=== PATIENT | male | born 1945 | race Hispanic/Latino ===

== ENCOUNTER 2022-02-24 09:45 | Day surgery (SDC) | payer OTHER ==
[2022-02-24] MEDS ORDERED: Acetaminophen 500 MG TAB ONE (11:16)
[2022-02-24] MEDS ORDERED: diphenhydrAMINE 25 MG CAP ONE (11:16)
[2022-02-24 13:52] VITALS: BP 172/77; TEMP 98.1
== END 2022-02-24 13:53 | disposition home or self-care (01) ==
LOC: ONC/OP 09:45
PROVIDERS: ATTEND Internal Medicine Hematology & Oncology
PROC: 30233N1 Transfusion of Nonautologous Red Blood Cells into Peripheral Vein, Percutaneous Approach (ICD-10-PCS; principal; 2022-02-24)
DX: D64.9 Anemia, unspecified (principal); D69.6 Thrombocytopenia, unspecified
CPT/HCPCS: 36430; 86850; 86900; 86901; P9016

== ENCOUNTER 2022-03-11 09:31 | Day surgery (SDC) | payer OTHER ==
[2022-03-11] MEDS ORDERED: diphenhydrAMINE 25 MG CAP ONE (10:31)
[2022-03-11] MEDS ORDERED: Acetaminophen 500 MG TAB ONE (10:31)
[2022-03-11 13:06] VITALS: BP 173/76; TEMP 98
== END 2022-03-11 13:06 | disposition home or self-care (01) ==
LOC: ONC/OP 09:31
PROVIDERS: ATTEND Internal Medicine Hematology & Oncology
PROC: 30233N1 Transfusion of Nonautologous Red Blood Cells into Peripheral Vein, Percutaneous Approach (ICD-10-PCS; principal; 2022-03-11)
DX: D64.9 Anemia, unspecified (principal); D69.6 Thrombocytopenia, unspecified
CPT/HCPCS: 36430; 86850; 86900; 86901; P9016

== ENCOUNTER 2022-03-25 11:51 | Outpatient (CLI) | payer OTHER | END 2022-03-25 11:52 | disposition home or self-care (01) | LOC: BICRAD 11:51 | PROVIDERS: ATTEND Internal Medicine Hematology & Oncology | DX: R05.9 Cough, unspecified (principal); C91.Z0 Other lymphoid leukemia not having achieved remission; J90 Pleural effusion, not elsewhere classified; J98.11 Atelectasis | CPT/HCPCS: 71046 ==

== ENCOUNTER 2022-06-02 08:29 | Day surgery (SDC) | payer OTHER ==
[2022-06-02] MEDS ORDERED: Acetaminophen 500 MG TAB ONE (09:29)
[2022-06-02] MEDS ORDERED: diphenhydrAMINE 25 MG CAP ONE (09:29)
[2022-06-02 15:24] VITALS: BP 142/65; TEMP 97.8
== END 2022-06-02 15:19 | disposition home or self-care (01) ==
LOC: ONC/OP 08:29
PROVIDERS: ATTEND Internal Medicine Hematology & Oncology
PROC: 30233N1 Transfusion of Nonautologous Red Blood Cells into Peripheral Vein, Percutaneous Approach (ICD-10-PCS; principal; 2022-06-02)
DX: D64.9 Anemia, unspecified (principal); D69.6 Thrombocytopenia, unspecified
CPT/HCPCS: 36430; 86850; 86900; 86901; P9016

== ENCOUNTER 2022-09-16 09:40 | Inpatient (IN) | payer OTHER ==
[2022-09-16 10:41] LABS: Hemoglobin 8.1 g/dL (14.0-18.0); Mean Corpuscular HGB CONC 31.8 g/dL (32.0-36.0); Mean Corpuscular Hemoglobin 37.6 pg (27.0-31.0); Mean Platelet Volume 7.3 fL (7.4-10.4); Platelet Count 308 10x3/uL (130-400); RBC Distribution Width 17.7 % (11.5-14.5); Red Blood Cell (RBC) Count 2.15 mill/uL (4.70-6.10); White Blood Cell (WBC) Count 4.7 10x3/uL (4.8-10.8)
[2022-09-16 11:00] LABS: ALT (SGPT) 15 U/L (8-55); AST (SGOT) 17 U/L (5-34); Albumin 3.3 g/dL (3.4-4.8); Alkaline Phosphatase 62 U/L (40-110); Anion Gap 10 mmol/L (10-20); BUN (Urea Nitrogen) 22 mg/dL (8.4-25.7); Bilirubin, Total 0.9 mg/dL (0.2-1.2); Calc. Creatinine Clearance 0 mL/min (70-130); Calcium 8.3 mg/dL (7.8-10.44); Carbon Dioxide 29 mmol/L (23-31); Chloride 102 mmol/L (98-107); Estimated GFR 61; Globulin 3.2 g/dL (2.4-3.5); Glucose 131 mg/dL (83-110); Potassium 4.6 mmol/L (3.5-5.1); Protein, Total 6.5 g/dL (5.8-8.1); Sodium 136 mmol/L (136-145)
[2022-09-16 11:19] LABS: Band 1 % (5-11); Eosinophils 1 % (0-10); Hypersemented Neutrophil SLIGHT; Hypochromia SLIGHT = 6-15 cells (100X) (0-5/hpf); Lymphocytes 35 % (21-51); MDiff Complete? YES; Macrocytosis MODERATE=16-30 cells (100X) (0-5/hpf); Monocytes 15 % (0-10); Neutrophil 46 % (42-75); Ovalocytes SLIGHT = 2-5 cells (100X) (0-1/hpf); Platelet Morphology Comment Appears Adequate; Polychromasia SLIGHT = 2-3 cells (100X) (0-2/hpf)
[2022-09-16] MEDS ORDERED: Furosemide 40 MG/4 ML VIAL SLOW IVP SCH (12:45)
[2022-09-16] MEDS ORDERED: Acetaminophen 325 MG TAB PO PRN (13:13)
[2022-09-16] MEDS ORDERED: Ondansetron ODT 4 MG TAB PO PRN (13:13)
[2022-09-16] MEDS ORDERED: Senokot S 8.6-50 MG TAB PO PRN (13:13)
[2022-09-16 14:21] LABS: Hemoglobin A1c 5.5 % (4.0-6.0)
[2022-09-16 14:29] LABS: Magnesium 2.2 mg/dL (1.6-2.6)
[2022-09-16 14:34] LABS: Troponin I Less than 0.010 ng/mL (< 0.028)
[2022-09-16 17:26] LABS: SARS-CoV-2 NAA Rapid Test Not Detected (NotDetected)
[2022-09-16] MEDS ORDERED: Furosemide 40 MG/4 ML VIAL ONE (17:28)
[2022-09-16] MEDS: Carvedilol 3.125 MG TAB PO SCH (18:29)
[2022-09-16] MEDS: Famotidine 20 MG TAB PO SCH (20:32)
[2022-09-17 05:12] LABS: ALT (SGPT) 10 U/L (8-55); AST (SGOT) 13 U/L (5-34); Albumin 2.9 g/dL (3.4-4.8); Alkaline Phosphatase 51 U/L (40-110); Anion Gap 9 mmol/L (10-20); BUN (Urea Nitrogen) 24 mg/dL (8.4-25.7); Bilirubin, Total 0.7 mg/dL (0.2-1.2); Calc. Creatinine Clearance 78 mL/min (70-130); Carbon Dioxide 30 mmol/L (23-31); Chloride 102 mmol/L (98-107); Estimated GFR 62; Glucose 80 mg/dL (83-110); Potassium 4.2 mmol/L (3.5-5.1); Protein, Total 5.9 g/dL (5.8-8.1); Sodium 137 mmol/L (136-145)
[2022-09-17] MEDS ORDERED: Furosemide 40 MG/4 ML VIAL SLOW IVP SCH ×2 (06:00→09:45)
[2022-09-17 06:05] VITALS: BMI 34.8
[2022-09-17 06:10] LABS: Anisocytosis SLIGHT = 6-15 cells (100X) (0-5/hpf); Elliptocytes SLIGHT = 2-5 cells (100X) (0-1/hpf); Eosinophils 2 % (0-10); Hemoglobin 7.4 g/dL (14.0-18.0); Lymphocytes 58 % (21-51); MDiff Complete? YES; Macrocytosis MODERATE=16-30 cells (100X) (0-5/hpf); Mean Corpuscular HGB CONC 31.9 g/dL (32.0-36.0); Mean Corpuscular Hemoglobin 37.1 pg (27.0-31.0); Mean Platelet Volume 7.2 fL (7.4-10.4); Monocytes 7 % (0-10); Neutrophil 33 % (42-75); Ovalocytes SLIGHT = 2-5 cells (100X) (0-1/hpf); Platelet Count 269 10x3/uL (130-400); Platelet Morphology Comment Appears Adequate; RBC Distribution Width 17.5 % (11.5-14.5); Red Blood Cell (RBC) Count 1.98 mill/uL (4.70-6.10); White Blood Cell (WBC) Count 4.2 10x3/uL (4.8-10.8)
[2022-09-17] MEDS ORDERED: FLU VACC QS2022-23(65YR UP)/PF 240 MCG/0.7 ML SYRINGE IM ONE (09:00)
[2022-09-17] MEDS: Empagliflozin 10 MG TAB PO SCH (09:00)
[2022-09-17] MEDS: Famotidine 20 MG TAB PO SCH ×2 (09:00→20:20)
[2022-09-17] MEDS: Spironolactone 25 MG TAB PO SCH (09:00)
[2022-09-17] MEDS ORDERED: Lisinopril 10 MG TAB PO SCH (09:00)
[2022-09-17] MEDS: Aspirin Chewable 81 MG TAB PO SCH (09:00)
[2022-09-17] MEDS: Enoxaparin Sodium 40 MG/0.4 ML SYRINGE SC SCH (09:00)
[2022-09-17] MEDS ORDERED: Carvedilol 3.125 MG TAB PO SCH ×2 (09:45→17:00)
[2022-09-17] MEDS: Furosemide 40 MG/4 ML VIAL SLOW IVP SCH (16:02)
[2022-09-17] MEDS: Carvedilol 3.125 MG TAB PO SCH (20:22)
[2022-09-18 04:31] LABS: #Basophils 0.1 thou/uL (0.0-0.2); #Eosinphils 0.3 thou/uL (0.0-0.7); #Lymphocytes 1.9 thou/uL (1.20-3.40); #Monocytes 0.4 thou/uL (0.11-0.59); #Neutrophils 1.2 thou/uL (1.40-6.50); %Basophils 1.3 % (0.0-1.0); %Eosinophils 6.7 % (0.0-10.0); %Lymphocytes 48.7 % (21.0-51.0); %Monocytes 11.5 % (0.0-10.0); %Neutrophils 31.7 % (42.0-75.0); Hemoglobin 7.4 g/dL (14.0-18.0); Mean Corpuscular HGB CONC 31.1 g/dL (32.0-36.0); Mean Corpuscular Hemoglobin 36.8 pg (27.0-31.0); Mean Platelet Volume 7.2 fL (7.4-10.4); Platelet Count 309 10x3/uL (130-400); RBC Distribution Width 17.5 % (11.5-14.5); White Blood Cell (WBC) Count 3.8 10x3/uL (4.8-10.8)
[2022-09-18 04:54] LABS: Anion Gap 10 mmol/L (10-20); BUN (Urea Nitrogen) 26 mg/dL (8.4-25.7); Calc. Creatinine Clearance 71 mL/min (70-130); Calcium 8.3 mg/dL (7.8-10.44); Carbon Dioxide 36 mmol/L (23-31); Chloride 97 mmol/L (98-107); Estimated GFR 58; Glucose 76 mg/dL (83-110); Potassium 3.7 mmol/L (3.5-5.1); Sodium 139 mmol/L (136-145)
[2022-09-18] MEDS: Furosemide 40 MG/4 ML VIAL SLOW IVP SCH ×2 (05:13→15:26)
[2022-09-18] MEDS: Carvedilol 6.25 MG TAB PO SCH ×2 (09:57→15:26)
[2022-09-18] MEDS: Famotidine 20 MG TAB PO SCH ×2 (09:57→20:34)
[2022-09-18] MEDS: Enoxaparin Sodium 40 MG/0.4 ML SYRINGE SC SCH (09:57)
[2022-09-18] MEDS: Spironolactone 25 MG TAB PO SCH (09:58)
[2022-09-18] MEDS: Empagliflozin 10 MG TAB PO SCH (09:58)
[2022-09-18] MEDS: Aspirin Chewable 81 MG TAB PO SCH (09:58)
[2022-09-19 05:02] LABS: Hemoglobin 7.6 g/dL (14.0-18.0)
[2022-09-19 05:27] LABS: BUN (Urea Nitrogen) 24 mg/dL (8.4-25.7); Calc. Creatinine Clearance 71 mL/min (70-130); Calcium 8.3 mg/dL (7.8-10.44); Estimated GFR 59; Glucose 94 mg/dL (83-110)
[2022-09-19 05:37] LABS: Anion Gap 13 mmol/L (10-20); Carbon Dioxide 36 mmol/L (23-31); Chloride 97 mmol/L (98-107); Potassium 3.9 mmol/L (3.5-5.1); Sodium 142 mmol/L (136-145)
[2022-09-19] MEDS: Furosemide 40 MG/4 ML VIAL SLOW IVP SCH ×2 (05:57→15:32)
[2022-09-19] MEDS: Carvedilol 6.25 MG TAB PO SCH ×2 (09:32→18:34)
[2022-09-19] MEDS: Aspirin Chewable 81 MG TAB PO SCH (09:32)
[2022-09-19] MEDS: Famotidine 20 MG TAB PO SCH ×2 (09:32→20:45)
[2022-09-19] MEDS: Spironolactone 25 MG TAB PO SCH (09:32)
[2022-09-19 10:06] LABS: Iron 59 ug/dL (65-175); Iron Binding Capacity, Total 159 mcg/dL (261-462)
[2022-09-19] MEDS: Empagliflozin 10 MG TAB PO SCH (10:17)
[2022-09-19] MEDS: Enoxaparin Sodium 40 MG/0.4 ML SYRINGE SC SCH (10:17)
[2022-09-20 05:14] LABS: #Eosinphils 0.4 thou/uL (0.0-0.7); #Lymphocytes 2.1 thou/uL (1.20-3.40); #Monocytes 0.5 thou/uL (0.11-0.59); #Neutrophils 1.3 thou/uL (1.40-6.50); %Basophils 0.3 % (0.0-1.0); %Eosinophils 8.8 % (0.0-10.0); %Monocytes 12.6 % (0.0-10.0); %Neutrophils 29.3 % (42.0-75.0); Hemoglobin 7.6 g/dL (14.0-18.0); Mean Corpuscular HGB CONC 31.6 g/dL (32.0-36.0); Mean Corpuscular Hemoglobin 37.2 pg (27.0-31.0); Mean Platelet Volume 7.1 fL (7.4-10.4); Platelet Count 347 10x3/uL (130-400); RBC Distribution Width 17.1 % (11.5-14.5); Red Blood Cell (RBC) Count 2.05 mill/uL (4.70-6.10); White Blood Cell (WBC) Count 4.3 10x3/uL (4.8-10.8)
[2022-09-20 05:33] LABS: BUN (Urea Nitrogen) 25 mg/dL (8.4-25.7); Calc. Creatinine Clearance 63 mL/min (70-130); Calcium 8.4 mg/dL (7.8-10.44); Estimated GFR 55; Glucose 83 mg/dL (83-110)
[2022-09-20] MEDS: Furosemide 40 MG/4 ML VIAL SLOW IVP SCH (05:33)
[2022-09-20 05:35] LABS: Magnesium 2.4 mg/dL (1.6-2.6)
[2022-09-20 05:43] LABS: Anion Gap 16 mmol/L (10-20); Carbon Dioxide 33 mmol/L (23-31); Chloride 95 mmol/L (98-107); Potassium 3.6 mmol/L (3.5-5.1); Sodium 140 mmol/L (136-145)
[2022-09-20] MEDS: Spironolactone 25 MG TAB PO SCH (09:19)
[2022-09-20] MEDS: Famotidine 20 MG TAB PO SCH ×2 (09:20→21:35)
[2022-09-20] MEDS: Carvedilol 25 MG TAB PO SCH ×2 (09:20→18:00)
[2022-09-20] MEDS: Enoxaparin Sodium 40 MG/0.4 ML SYRINGE SC SCH (09:20)
[2022-09-20] MEDS: Aspirin Chewable 81 MG TAB PO SCH (09:20)
[2022-09-20] MEDS: Empagliflozin 10 MG TAB PO SCH (09:20)
[2022-09-20] MEDS ORDERED: Furosemide 40 MG/4 ML VIAL SLOW IVP SCH ×2 (11:29→11:30)
[2022-09-20] MEDS ORDERED: Torsemide 20 MG TAB PO SCH (14:00)
[2022-09-21] MEDS: Carvedilol 25 MG TAB PO SCH (08:58)
[2022-09-21] MEDS: Enoxaparin Sodium 40 MG/0.4 ML SYRINGE SC SCH (08:59)
[2022-09-21] MEDS: Spironolactone 25 MG TAB PO SCH (08:59)
[2022-09-21] MEDS: Aspirin Chewable 81 MG TAB PO SCH (08:59)
[2022-09-21] MEDS: Famotidine 20 MG TAB PO SCH (08:59)
[2022-09-21] MEDS: Empagliflozin 10 MG TAB PO SCH (08:59)
[2022-09-21] MEDS ORDERED: Torsemide 20 MG TAB PO SCH (09:00)
[2022-09-21 12:00] VITALS: BP 169/69; TEMP 98.6
== END 2022-09-21 12:19 | disposition home or self-care (01) | DRG 291 ==
LOC: ERS 09:40 → OBSVTOIN 12:36 → ERHOLD 12:36 → 2NO 17:50
PROVIDERS: ADMIT Internal Medicine; ATTEND Internal Medicine
DX: I13.0 Hypertensive heart and chronic kidney disease with heart failure and stage 1 through stage 4 chronic kidney disease, or unspecified chronic kidney disease (principal); I50.33 Acute on chronic diastolic (congestive) heart failure; J96.21 Acute and chronic respiratory failure with hypoxia; C91.10 Chronic lymphocytic leukemia of B-cell type not having achieved remission; N18.30 Chronic kidney disease, stage 3 unspecified; E11.22 Type 2 diabetes mellitus with diabetic chronic kidney disease; D63.1 Anemia in chronic kidney disease; Z20.822 Contact with and (suspected) exposure to COVID-19; I49.3 Ventricular premature depolarization; Z82.49 Family history of ischemic heart disease and other diseases of the circulatory system; Z79.899 Other long term (current) drug therapy; Z79.84 Long term (current) use of oral hypoglycemic drugs
CPT/HCPCS: 36415; 71045; 80048; 80053; 82728; 83036; 83540; 83550; 83735; 83880; 84443; 84484; 85014; 85018; 85025; 93005; 93306; 93798; 94760; J1650; J1940

== ENCOUNTER 2022-09-28 11:57 | Emergency (ER) | payer OTHER ==
[2022-09-28 12:43] LABS: Hemoglobin 7.6 g/dL (14.0-18.0); Mean Corpuscular Hemoglobin 36.9 pg (27.0-31.0); Mean Platelet Volume 7.1 fL (7.4-10.4); Platelet Count 270 10x3/uL (130-400); RBC Distribution Width 17.1 % (11.5-14.5); Red Blood Cell (RBC) Count 2.04 mill/uL (4.70-6.10); White Blood Cell (WBC) Count 5.4 10x3/uL (4.8-10.8)
[2022-09-28 13:04] LABS: ALT (SGPT) 12 U/L (8-55); AST (SGOT) 17 U/L (5-34); Albumin 3.3 g/dL (3.4-4.8); Alkaline Phosphatase 49 U/L (40-110); Anion Gap 11 mmol/L (10-20); BUN (Urea Nitrogen) 35 mg/dL (8.4-25.7); Bilirubin, Total 0.7 mg/dL (0.2-1.2); Calc. Creatinine Clearance 0 mL/min (70-130); Calcium 8.2 mg/dL (7.8-10.44); Carbon Dioxide 29 mmol/L (23-31); Chloride 103 mmol/L (98-107); Estimated GFR 42; Globulin 3.3 g/dL (2.4-3.5); Glucose 144 mg/dL (83-110); Protein, Total 6.6 g/dL (5.8-8.1); Sodium 138 mmol/L (136-145)
[2022-09-28 13:24] LABS: Anisocytosis SLIGHT = 6-15 cells (100X) (0-5/hpf); Band 3 % (5-11); Lymphocytes 44 % (21-51); MDiff Complete? YES; Macrocytosis SLIGHT = 6-15 cells (100X) (0-5/hpf); Monocytes 11 % (0-10); Neutrophil 41 % (42-75); Platelet Morphology Comment Appears Adequate; Polychromasia SLIGHT = 2-3 cells (100X) (0-2/hpf); Schistocytes SLIGHT = 2-5 cells (100X) (0-1/hpf)
[2022-09-28 13:37] LABS: SARS-CoV-2 NAA Rapid Test DETECTED (NotDetected)
== END 2022-09-28 15:00 | disposition home or self-care (01) ==
LOC: ERS 11:57
DX: U07.1 COVID-19 (principal); I11.0 Hypertensive heart disease with heart failure; I50.9 Heart failure, unspecified; R00.8 Other abnormalities of heart beat; E11.9 Type 2 diabetes mellitus without complications; Z79.899 Other long term (current) drug therapy; Z79.84 Long term (current) use of oral hypoglycemic drugs
CPT/HCPCS: 36415; 71045; 80053; 83880; 84484; 85025; 93005

== ENCOUNTER 2022-10-27 10:11 | Day surgery (SDC) | payer OTHER ==
[2022-10-27 11:12] VITALS: TEMP 97.8
[2022-10-27] MEDS ORDERED: Acetaminophen 500 MG TAB ONE (11:14)
[2022-10-27] MEDS ORDERED: diphenhydrAMINE 25 MG CAP ONE (11:14)
[2022-10-27] MEDS ORDERED: diphenhydrAMINE 25 MG CAP PO SCH (11:15)
[2022-10-27] MEDS ORDERED: Acetaminophen 500 MG TAB PO SCH (11:15)
[2022-10-27 18:54] VITALS: BP 142/65
[2022-10-27 19:31] LABS: Bacteria/HPF None Seen HPF (None Seen); Bilirubin Negative (Negative); Blood, Urine Negative (Negative); Clarity Clear (Clear); Glucose, Urine (Dipstick) Greater than 1000 mg/dL (Negative); Ketone, Urine Negative (Negative); Leukocyte Negative Leu/uL (Negative); Nitrite Negative (Negative); Protein, Urine (Dipstick) 30 mg/dL (Neg-Trace); RBC/HPF None Seen HPF (0-3); Specific Gravity, Urine 1.017 (1.002-1.036); Squamous Epithelial None Seen HPF (0-3); Urobilinogen Normal mg/dL (Less than 2); WBC/HPF 0-3 HPF (0-3); pH, Urine 5.5 (5.0-9.0)
== END 2022-10-27 18:55 | disposition home or self-care (01) ==
LOC: ONC/OP 10:11
PROVIDERS: ATTEND Internal Medicine Hematology & Oncology
PROC: 30233N1 Transfusion of Nonautologous Red Blood Cells into Peripheral Vein, Percutaneous Approach (ICD-10-PCS; principal; 2022-10-27)
DX: D64.9 Anemia, unspecified (principal); D69.6 Thrombocytopenia, unspecified
CPT/HCPCS: 36430; 81003; 81015; 86850; 86900; 86901; P9016

== ENCOUNTER 2022-11-17 18:44 | Inpatient (IN) | payer OTHER ==
[2022-11-17] MEDS ORDERED: Piperacillin/Tazobactam 4.5 GM VIAL ONE (20:18)
[2022-11-17] MEDS ORDERED: Acetaminophen 500 MG TAB ONE (20:18)
[2022-11-17 20:34] LABS: Hemoglobin 7.2 g/dL (14.0-18.0); Mean Corpuscular HGB CONC 34.2 g/dL (32.0-36.0); Mean Corpuscular Hemoglobin 37.3 pg (27.0-31.0); Mean Platelet Volume 6.5 fL (7.4-10.4); Platelet Count 425 10x3/uL (130-400); Red Blood Cell (RBC) Count 1.93 mill/uL (4.70-6.10); White Blood Cell (WBC) Count 20.3 10x3/uL (4.8-10.8)
[2022-11-17] MEDS ORDERED: Vancomycin 1 GM/200 ML (FROZEN) BAG ONE (20:39)
[2022-11-17 20:49] LABS: INR-International Normal Ratio 1.6; PTT 38.2 sec (22.9-36.1); Prothrombin Time 19.4 sec (12.0-14.7)
[2022-11-17 20:51] LABS: D-Dimer Test 1.53 *mcg/mL (0.27-0.43)
[2022-11-17 20:56] LABS: Anisocytosis SLIGHT = 6-15 cells (100X) (0-5/hpf); Band 23 % (5-11); Dohle Bodies SLIGHT; Lymphocytes 6 % (21-51); MDiff Complete? YES; Macrocytosis SLIGHT = 6-15 cells (100X) (0-5/hpf); Monocytes 9 % (0-10); Neutrophil 62 % (42-75); Platelet Morphology Comment Appears Increased; Polychromasia SLIGHT = 2-3 cells (100X) (0-2/hpf); Toxic Granulation SLIGHT
[2022-11-17 20:58] LABS: ALT (SGPT) 10 U/L (8-55); AST (SGOT) 17 U/L (5-34); Alkaline Phosphatase 42 U/L (40-110); Anion Gap 17 mmol/L (10-20); BUN (Urea Nitrogen) 85 mg/dL (8.4-25.7); Bilirubin, Total 0.8 mg/dL (0.2-1.2); Calc. Creatinine Clearance 0 mL/min (70-130); Calcium 8.2 mg/dL (7.8-10.44); Carbon Dioxide 20 mmol/L (23-31); Chloride 96 mmol/L (98-107); Estimated GFR 17; Globulin 3.7 g/dL (2.4-3.5); Glucose 132 mg/dL (83-110); Magnesium 2.3 mg/dL (1.6-2.6); Potassium 5.3 mmol/L (3.5-5.1); Protein, Total 6.7 g/dL (5.8-8.1); Sodium 128 mmol/L (136-145)
[2022-11-17 21:10] LABS: CRP (Inflammatory) 32.67 mg/dL (= or < 0.5)
[2022-11-17 21:19] LABS: CKMB 3.4 ng/mL (0-6.6)
[2022-11-17 21:53] LABS: SARS-CoV-2 NAA Rapid Test Not Detected (NotDetected)
[2022-11-18] MEDS ORDERED: Bisacodyl 5 MG TAB PO PRN (01:10)
[2022-11-18] MEDS ORDERED: Bisacodyl 10 MG SUPP PR PRN (01:10)
[2022-11-18] MEDS ORDERED: Senokot S 8.6-50 MG TAB PO PRN (01:10)
[2022-11-18] MEDS ORDERED: Acetaminophen 325 MG TAB PO PRN (01:15)
[2022-11-18] MEDS ORDERED: Ondansetron PF 4 MG/2 ML Vial IVP PRN (01:15)
[2022-11-18] MEDS ORDERED: Ondansetron ODT 4 MG TAB SL PRN (01:15)
[2022-11-18 03:04] LABS: Bilirubin Negative (Negative); Blood, Urine Negative (Negative); CAUTI Indications for Culture Fever or rigors; Clarity Turbid (Clear); Glucose, Urine (Dipstick) Normal (Negative); Ketone, Urine Trace mg/dL (Negative); Leukocyte Negative Leu/uL (Negative); Nitrite Negative (Negative); Protein, Urine (Dipstick) 20 mg/dL (Neg-Trace); RBC/HPF 0-3 HPF (0-3); Specific Gravity, Urine 1.019 (1.002-1.036); Squamous Epithelial 0-3 HPF (0-3); Urobilinogen Normal mg/dL (Less than 2); WBC/HPF 0-3 HPF (0-3)
[2022-11-18 03:05] LABS: Bacteria/HPF Rare-Few HPF (None Seen); Urine Culture Reflex No No
[2022-11-18 06:03] LABS: Hemoglobin 6.6 g/dL (14.0-18.0); Mean Corpuscular HGB CONC 33.8 g/dL (32.0-36.0); Mean Corpuscular Hemoglobin 37.7 pg (27.0-31.0); Mean Platelet Volume 6.2 fL (7.4-10.4); Platelet Count 341 10x3/uL (130-400); RBC Distribution Width 19.1 % (11.5-14.5); Red Blood Cell (RBC) Count 1.74 mill/uL (4.70-6.10)
[2022-11-18 06:15] LABS: Anion Gap 13 mmol/L (10-20); BUN (Urea Nitrogen) 84 mg/dL (8.4-25.7); Calc. Creatinine Clearance 22 mL/min (70-130); Carbon Dioxide 20 mmol/L (23-31); Chloride 100 mmol/L (98-107); Estimated GFR 18; Glucose 107 mg/dL (83-110); Potassium 4.6 mmol/L (3.5-5.1); Sodium 128 mmol/L (136-145)
[2022-11-18] MEDS ORDERED: Sodium Chloride 0.9% 1,000 ML IV SCH (06:30)
[2022-11-18 06:56] LABS: Anisocytosis SLIGHT = 6-15 cells (100X) (0-5/hpf); Band 11 % (5-11); Crenated RBC SLIGHT = 1-5 cells (100X) (None Seen); Lymphocytes 8 % (21-51); MDiff Complete? YES; Monocytes 5 % (0-10); Neutrophil 76 % (42-75); Ovalocytes SLIGHT = 2-5 cells (100X) (0-1/hpf); Platelet Morphology Comment Appears Adequate; Polychromasia SLIGHT = 2-3 cells (100X) (0-2/hpf); Schistocytes SLIGHT = 2-5 cells (100X) (0-1/hpf); Toxic Granulation SLIGHT
[2022-11-18] MEDS ORDERED: Carvedilol 25 MG TAB PO SCH (08:00)
[2022-11-18] MEDS: Famotidine 20 MG TAB PO SCH (08:30)
[2022-11-18] MEDS: predniSONE 5 MG TAB PO SCH (08:30)
[2022-11-18] MEDS ORDERED: Heparin 5,000 UNITS/ML VIAL SC SCH (09:00)
[2022-11-18] MEDS ORDERED: Empagliflozin 10 MG TAB PO SCH (09:00)
[2022-11-18] MEDS ORDERED: Dextrose 50% Abboject 50 ML SYRINGE SLOW IVP PRN (10:46)
[2022-11-18] MEDS ORDERED: Dextrose 5% in Water 1,000 ML IV PRN (10:46)
[2022-11-18] MEDS: Guaifenesin DM 100-10/5 ML UDCUP PO PRN (11:01)
[2022-11-18] MEDS: cefTRIAXone\\ROCEPHIN 1 GM in Sodium Chloride 0.9% 100 ML IVPB SCH (11:02)
[2022-11-18 11:18] LABS: Hemoglobin A1c 5.9 % (4.0-6.0)
[2022-11-18 15:12] LABS: Iron Binding Capacity, Total 100 mcg/dL (261-462)
[2022-11-18 15:13] LABS: Iron 101 ug/dL (65-175)
[2022-11-18 15:21] LABS: Troponin I 0.031 ng/mL (< 0.028)
[2022-11-18] MEDS: Doxycycline 100 MG in Sodium Chloride 0.9% 100 ML IVPB SCH (17:42)
[2022-11-18 18:26] LABS: Hemoglobin 7.4 g/dL (14.0-18.0)
[2022-11-18 18:56] LABS: RBC Count-Automated (BF) 185 /cu.mm; WBC/Nucleated-Auto (BF) 16066 /cu.mm
[2022-11-18 18:58] LABS: Fluid, Triglycerides 29 mg/dL (Not Available); Pleural Fluid, Amylase 49 U/L (Not Available); Pleural Fluid, Glucose Less than 20 mg/dL; Pleural Fluid, LDH 2708 U/L (Not Available); Pleural Fluid, Protein 4.5 g/dL
[2022-11-18 19:28] LABS: BF Color Yellow; Body Fluid Source Thoracentesis Fluid; Clarity Hazy (Clear); Tube # EDTA
[2022-11-18 19:32] LABS: BF Segmented Neutrophils 16 %; Cell Count Non Hematic 69 %; Lymphocytes 15 %
[2022-11-19] MEDS: Doxycycline 100 MG in Sodium Chloride 0.9% 100 ML IVPB SCH ×2 (05:49→17:49)
[2022-11-19 07:53] LABS: Hemoglobin 7.5 g/dL (14.0-18.0); Mean Corpuscular HGB CONC 33.1 g/dL (32.0-36.0); Mean Corpuscular Hemoglobin 36.3 pg (27.0-31.0); Mean Platelet Volume 6.7 fL (7.4-10.4); Platelet Count 414 10x3/uL (130-400); RBC Distribution Width 18.2 % (11.5-14.5); Red Blood Cell (RBC) Count 2.05 mill/uL (4.70-6.10); White Blood Cell (WBC) Count 6.9 10x3/uL (4.8-10.8)
[2022-11-19 07:59] LABS: ALT (SGPT) 12 U/L (8-55); AST (SGOT) 11 U/L (5-34); Albumin 2.4 g/dL (3.4-4.8); Alkaline Phosphatase 39 U/L (40-110); Anion Gap 15 mmol/L (10-20); BUN (Urea Nitrogen) 88 mg/dL (8.4-25.7); Bilirubin, Total 0.7 mg/dL (0.2-1.2); Calc. Creatinine Clearance 28 mL/min (70-130); Carbon Dioxide 18 mmol/L (23-31); Chloride 102 mmol/L (98-107); Estimated GFR 24; Globulin 3.4 g/dL (2.4-3.5); Glucose 99 mg/dL (83-110); Magnesium 2.3 mg/dL (1.6-2.6); Potassium 4.9 mmol/L (3.5-5.1); Protein, Total 5.8 g/dL (5.8-8.1); Sodium 130 mmol/L (136-145)
[2022-11-19 08:01] LABS: Troponin I 0.044 ng/mL (< 0.028)
[2022-11-19] MEDS: predniSONE 5 MG TAB PO SCH (08:57)
[2022-11-19] MEDS: Famotidine 20 MG TAB PO SCH (08:57)
[2022-11-19 10:45] LABS: Band 24 % (5-11); Lymphocytes 6 % (21-51); MDiff Complete? YES; Macrocytosis SLIGHT = 6-15 cells (100X) (0-5/hpf); Monocytes 1 % (0-10); Neutrophil 69 % (42-75); Platelet Morphology Comment Appears Increased; Polychromasia SLIGHT = 2-3 cells (100X) (0-2/hpf)
[2022-11-19] MEDS: cefTRIAXone\\ROCEPHIN 1 GM in Sodium Chloride 0.9% 100 ML IVPB SCH (10:46)
[2022-11-19] MEDS: Carvedilol 6.25 MG TAB PO SCH (17:20)
[2022-11-20 05:12] LABS: Platelet Count 383 10x3/uL (130-400)
[2022-11-20] MEDS: Doxycycline 100 MG in Sodium Chloride 0.9% 100 ML IVPB SCH (05:20)
[2022-11-20] MEDS: Carvedilol 6.25 MG TAB PO SCH ×2 (05:21→18:33)
[2022-11-20] MEDS: Famotidine 20 MG TAB PO SCH (08:11)
[2022-11-20] MEDS ORDERED: Fentanyl 250 MCG/5 ML VIAL ONE (09:00)
[2022-11-20] MEDS ORDERED: Norepinephrine 4 MG/4 ML VIAL ONE (09:01)
[2022-11-20] MEDS ORDERED: Dexmedetomidine 200 MCG/2 ML VIAL ONE (09:01)
[2022-11-20] MEDS ORDERED: Lidocaine 1% MPF 2 ML VIAL ONE (09:38)
[2022-11-20 10:01] LABS: PTT 29.6 sec (22.9-36.1)
[2022-11-20 10:06] LABS: INR-International Normal Ratio 1.2
[2022-11-20] MEDS ORDERED: Naloxone HCl 0.4 mg/ml Vial IVP PRN (10:45)
[2022-11-20] MEDS ORDERED: HYDROcodone/Acetaminophen 5/325 mg Tablet PO PRN ×2 (10:45)
[2022-11-20] MEDS ORDERED: Promethazine HCl 25 MG SUPP PR PRN (10:45)
[2022-11-20] MEDS ORDERED: diphenhydrAMINE 50 MG/ML VIAL IVP PRN (10:45)
[2022-11-20] MEDS ORDERED: diphenhydrAMINE 25 MG CAP PO PRN (10:45)
[2022-11-20] MEDS ORDERED: Zolpidem Tartrate 5 MG TAB PO PRN (10:45)
[2022-11-20] MEDS ORDERED: Ondansetron PF 4 MG/2 ML Vial IVP PRN (10:45)
[2022-11-20] MEDS ORDERED: Moisturizing Cream (Eucerin) 113 GM JAR TOP PRN (10:45)
[2022-11-20] MEDS ORDERED: Promethazine HCl 25 MG/ML VIAL IM PRN ×2 (10:45→14:09)
[2022-11-20] MEDS ORDERED: Naloxone HCl 0.4 mg/ml Vial IV PRN (10:45)
[2022-11-20] MEDS ORDERED: diphenhydrAMINE 50 MG/ML VIAL IM PRN (10:45)
[2022-11-20] MEDS ORDERED: traMADol HCl 50 MG TAB PO PRN ×2 (10:45)
[2022-11-20] MEDS ORDERED: Lidocaine 1.5% w/Epi 1:200K 30 ML VIAL (Epid Use) ONE (10:48)
[2022-11-20] MEDS ORDERED: Ondansetron PF 4 MG/2 ML Vial ONE (10:48)
[2022-11-20] MEDS ORDERED: Dexamethasone 20 MG/5 ML VIAL ONE (10:48)
[2022-11-20] MEDS ORDERED: Rocuronium Bromide 10 MG/ML (10ML VIAL) ONE (10:48)
[2022-11-20] MEDS ORDERED: PROPOFOL 200 MG/20 ML VIAL ONE (10:48)
[2022-11-20] MEDS ORDERED: Lidocaine 1% PF 5 ML VIAL ONE (10:48)
[2022-11-20] MEDS ORDERED: cefTRIAXone\\ROCEPHIN 1 GM VIAL ONE (11:24)
[2022-11-20] MEDS ORDERED: SUGAMMADEX SODIUM 200 MG/2 ML VIAL ONE (13:17)
[2022-11-20] MEDS ORDERED: NOREPINEPHRINE 8 MG/250 ML-D5W 250 ML IVPB PRN (14:09)
[2022-11-20] MEDS ORDERED: Ipratropium/Albuterol 3 ML NEB NEB PRN (14:09)
[2022-11-20] MEDS ORDERED: niCARdipine 25 MG in Sodium Chloride 0.9% 250 ML 250 ML IVPB PRN (14:09)
[2022-11-20] MEDS: Fentanyl/Bupivacaine 100 ML EPIDURAL SCH (14:53)
[2022-11-20] MEDS: Lactated Ringer's 1,000 ML IV SCH ×2 (14:54→21:43)
[2022-11-20 14:55] LABS: Hemoglobin 8.5 g/dL (14.0-18.0); Mean Corpuscular HGB CONC 33.7 g/dL (32.0-36.0); Mean Corpuscular Hemoglobin 35.5 pg (27.0-31.0); Mean Platelet Volume 6.7 fL (7.4-10.4); Platelet Count 325 10x3/uL (130-400); RBC Distribution Width 19.6 % (11.5-14.5); Red Blood Cell (RBC) Count 2.41 mill/uL (4.70-6.10)
[2022-11-20 15:01] LABS: White Blood Cell (WBC) Count 0.9 10x3/uL (4.8-10.8)
[2022-11-20 15:20] LABS: Anion Gap 11 mmol/L (10-20); BUN (Urea Nitrogen) 73 mg/dL (8.4-25.7); Calc. Creatinine Clearance 46 mL/min (70-130); Calcium 7.9 mg/dL (7.8-10.44); Carbon Dioxide 17 mmol/L (23-31); Chloride 108 mmol/L (98-107); Estimated GFR 43; Glucose 202 mg/dL (83-110); Potassium 4.7 mmol/L (3.5-5.1); Sodium 131 mmol/L (136-145)
[2022-11-20 15:21] LABS: Anisocytosis SLIGHT = 6-15 cells (100X) (0-5/hpf); Band 4 % (5-11); Lymphocytes 10 % (21-51); MDiff Complete? YES; Macrocytosis SLIGHT = 6-15 cells (100X) (0-5/hpf); Monocytes 5 % (0-10); Neutrophil 81 % (42-75); Ovalocytes SLIGHT = 2-5 cells (100X) (0-1/hpf); Platelet Morphology Comment Appears Adequate; Polychromasia SLIGHT = 2-3 cells (100X) (0-2/hpf); Schistocytes SLIGHT = 2-5 cells (100X) (0-1/hpf)
[2022-11-20] MEDS: cefTRIAXone\\ROCEPHIN 1 GM in Sodium Chloride 0.9% 100 ML IVPB SCH (15:28)
[2022-11-20] MEDS ORDERED: Insulin Regular 300 UNITS/3 ML VIAL SC PRN (17:16)
[2022-11-20] MEDS ORDERED: VANCOMYCIN 1.75 GM/500 ML BAG 1.75 GM in Premix Bag 1 BAG IVPB SCH (19:30)
[2022-11-20] MEDS: metroNIDAZOLE 500 MG in Premix Bag 1 BAG IVPB SCH (20:08)
[2022-11-20] MEDS: Cefepime 1 GM in Sodium Chloride 0.9% 100 ML IVPB SCH (20:08)
[2022-11-20] MEDS: Senokot S 8.6-50 MG TAB PO SCH (20:10)
[2022-11-21] MEDS: metroNIDAZOLE 500 MG in Premix Bag 1 BAG IVPB SCH ×3 (02:30→20:39)
[2022-11-21 03:59] LABS: Hemoglobin 8.6 g/dL (14.0-18.0); Mean Corpuscular HGB CONC 33.2 g/dL (32.0-36.0); Mean Corpuscular Hemoglobin 35.3 pg (27.0-31.0); Mean Platelet Volume 6.6 fL (7.4-10.4); Platelet Count 246 10x3/uL (130-400); RBC Distribution Width 19.8 % (11.5-14.5); Red Blood Cell (RBC) Count 2.43 mill/uL (4.70-6.10); White Blood Cell (WBC) Count 0.8 10x3/uL (4.8-10.8)
[2022-11-21 04:16] LABS: ALT (SGPT) 10 U/L (8-55); AST (SGOT) 8 U/L (5-34); Albumin 2.5 g/dL (3.4-4.8); Alkaline Phosphatase 31 U/L (40-110); Anion Gap 8 mmol/L (10-20); BUN (Urea Nitrogen) 61 mg/dL (8.4-25.7); Bilirubin, Total 0.5 mg/dL (0.2-1.2); Calc. Creatinine Clearance 59 mL/min (70-130); Carbon Dioxide 20 mmol/L (23-31); Chloride 111 mmol/L (98-107); Estimated GFR 58; Globulin 3.4 g/dL (2.4-3.5); Glucose 187 mg/dL (83-110); Magnesium 2.5 mg/dL (1.6-2.6); Potassium 4.4 mmol/L (3.5-5.1); Protein, Total 5.9 g/dL (5.8-8.1); Sodium 135 mmol/L (136-145)
[2022-11-21 04:44] LABS: Anisocytosis SLIGHT = 6-15 cells (100X) (0-5/hpf); Band 2 % (5-11); Lymphocytes 30 % (21-51); MDiff Complete? YES; Macrocytosis MODERATE=16-30 cells (100X) (0-5/hpf); Monocytes 2 % (0-10); Neutrophil 66 % (42-75); Ovalocytes SLIGHT = 2-5 cells (100X) (0-1/hpf); Platelet Morphology Comment Appears Adequate
[2022-11-21] MEDS: Fentanyl/Bupivacaine 100 ML EPIDURAL SCH (08:16)
[2022-11-21] MEDS: Cefepime 1 GM in Sodium Chloride 0.9% 100 ML IVPB SCH ×2 (09:12→20:38)
[2022-11-21] MEDS: Carvedilol 6.25 MG TAB PO SCH ×2 (09:13→17:59)
[2022-11-21] MEDS: Senokot S 8.6-50 MG TAB PO SCH ×2 (09:14→20:41)
[2022-11-21] MEDS: Famotidine 20 MG TAB PO SCH (09:14)
[2022-11-21] MEDS: Polyethylene Glycol 3350 17 GM Packet PO SCH (09:14)
[2022-11-21] MEDS: Insulin Regular 300 UNITS/3 ML VIAL SC PRN ×2 (11:59→18:00)
[2022-11-21] MEDS: VANCOMYCIN 1.25 GM/250 ML BAG 1.25 GM in Premix Bag 1 BAG IVPB SCH (20:41)
[2022-11-22] MEDS: Fentanyl/Bupivacaine 100 ML EPIDURAL SCH ×2 (01:21→19:10)
[2022-11-22] MEDS: metroNIDAZOLE 500 MG in Premix Bag 1 BAG IVPB SCH ×3 (03:09→17:34)
[2022-11-22] MEDS: Lactated Ringer's 1,000 ML IV SCH (03:10)
[2022-11-22 04:36] LABS: Anion Gap 9 mmol/L (10-20); BUN (Urea Nitrogen) 59 mg/dL (8.4-25.7); Calc. Creatinine Clearance 73 mL/min (70-130); Calcium 7.9 mg/dL (7.8-10.44); Carbon Dioxide 19 mmol/L (23-31); Chloride 111 mmol/L (98-107); Estimated GFR 74; Glucose 104 mg/dL (83-110); Potassium 4.2 mmol/L (3.5-5.1); Sodium 135 mmol/L (136-145)
[2022-11-22 05:22] LABS: Band 4 % (5-11); Hemoglobin 7.7 g/dL (14.0-18.0); Hypochromia SLIGHT = 6-15 cells (100X) (0-5/hpf); Lymphocytes 24 % (21-51); MDiff Complete? YES; Macrocytosis SLIGHT = 6-15 cells (100X) (0-5/hpf); Mean Corpuscular HGB CONC 32.1 g/dL (32.0-36.0); Mean Corpuscular Hemoglobin 34.8 pg (27.0-31.0); Mean Platelet Volume 6.6 fL (7.4-10.4); Monocytes 4 % (0-10); Neutrophil 68 % (42-75); Platelet Count 205 10x3/uL (130-400); Platelet Morphology Comment Appears Adequate; RBC Distribution Width 19.6 % (11.5-14.5); Red Blood Cell (RBC) Count 2.22 mill/uL (4.70-6.10); White Blood Cell (WBC) Count 1.3 10x3/uL (4.8-10.8)
[2022-11-22] MEDS: Cefepime 1 GM in Sodium Chloride 0.9% 100 ML IVPB SCH ×2 (08:49→20:30)
[2022-11-22] MEDS: Carvedilol 6.25 MG TAB PO SCH ×2 (08:49→17:16)
[2022-11-22] MEDS: Famotidine 20 MG TAB PO SCH (08:50)
[2022-11-22] MEDS: predniSONE 20 MG TAB PO SCH (08:50)
[2022-11-22] MEDS: Senokot S 8.6-50 MG TAB PO SCH ×2 (08:51→20:47)
[2022-11-22] MEDS: Polyethylene Glycol 3350 17 GM Packet PO SCH (08:51)
[2022-11-22] MEDS: Insulin Regular 300 UNITS/3 ML VIAL SC PRN (17:21)
[2022-11-22 20:56] LABS: Vancomycin, Trough 13.8 ug/mL
[2022-11-22] MEDS: Vancomycin 1.5 GRAM/300 ML BAG 1.5 GM in Premix Bag 1 BAG IVPB SCH (21:43)
[2022-11-23] MEDS: Lactated Ringer's 1,000 ML IV SCH (02:00)
[2022-11-23] MEDS: metroNIDAZOLE 500 MG in Premix Bag 1 BAG IVPB SCH ×3 (02:09→17:32)
[2022-11-23] MEDS: VANCOMYCIN 1.25 GM/250 ML BAG 1.25 GM in Premix Bag 1 BAG IVPB SCH (06:58)
[2022-11-23] MEDS ORDERED: Carvedilol 6.25 MG TAB PO SCH (07:10)
[2022-11-23] MEDS: Cefepime 2 GM in Sodium Chloride 0.9% 100 ML IVPB SCH ×2 (08:37→15:33)
[2022-11-23] MEDS: Carvedilol 25 MG TAB PO SCH ×2 (08:38→16:57)
[2022-11-23] MEDS: Famotidine 20 MG TAB PO SCH ×2 (08:38→22:18)
[2022-11-23] MEDS: predniSONE 20 MG TAB PO SCH (08:38)
[2022-11-23] MEDS: Senokot S 8.6-50 MG TAB PO SCH ×2 (08:56→22:22)
[2022-11-23] MEDS: Polyethylene Glycol 3350 17 GM Packet PO SCH (08:56)
[2022-11-23 09:16] LABS: Hemoglobin 8.9 g/dL (14.0-18.0); Mean Corpuscular HGB CONC 31.5 g/dL (32.0-36.0); Mean Platelet Volume 6.6 fL (7.4-10.4); Platelet Count 192 10x3/uL (130-400); RBC Distribution Width 19.5 % (11.5-14.5); Red Blood Cell (RBC) Count 2.61 mill/uL (4.70-6.10); White Blood Cell (WBC) Count 1.6 10x3/uL (4.8-10.8)
[2022-11-23 09:26] LABS: Anion Gap 9 mmol/L (10-20); BUN (Urea Nitrogen) 39 mg/dL (8.4-25.7); Calc. Creatinine Clearance 84 mL/min (70-130); Calcium 8.1 mg/dL (7.8-10.44); Carbon Dioxide 19 mmol/L (23-31); Chloride 112 mmol/L (98-107); Estimated GFR 88; Glucose 130 mg/dL (83-110); Potassium 4.6 mmol/L (3.5-5.1); Sodium 135 mmol/L (136-145)
[2022-11-23] MEDS ORDERED: HYDROcodone/Acetaminophen 5/325 mg Tablet PO PRN (09:40)
[2022-11-23 10:58] LABS: Band 4 % (5-11); Lymphocytes 16 % (21-51); MDiff Complete? YES; Monocytes 3 % (0-10); Neutrophil 77 % (42-75); Platelet Morphology Comment Appears Adequate; Polychromasia SLIGHT = 2-3 cells (100X) (0-2/hpf); Toxic Granulation SLIGHT
[2022-11-23] MEDS: HYDROcodone/Acetaminophen 5/325 mg Tablet PO PRN (14:09)
[2022-11-23] MEDS: Insulin Regular 300 UNITS/3 ML VIAL SC PRN (16:57)
[2022-11-23] MEDS: Vancomycin 1.5 GRAM/300 ML BAG 1.5 GM in Premix Bag 1 BAG IVPB SCH (22:22)
[2022-11-24] MEDS: Cefepime 2 GM in Sodium Chloride 0.9% 100 ML IVPB SCH ×3 (02:00→16:25)
[2022-11-24] MEDS: metroNIDAZOLE 500 MG in Premix Bag 1 BAG IVPB SCH ×3 (03:07→18:08)
[2022-11-24 06:10] LABS: Hemoglobin 7.4 g/dL (14.0-18.0); Mean Corpuscular HGB CONC 32.8 g/dL (32.0-36.0); Mean Platelet Volume 6.8 fL (7.4-10.4); Platelet Count 126 10x3/uL (130-400); RBC Distribution Width 18.9 % (11.5-14.5); Red Blood Cell (RBC) Count 2.12 mill/uL (4.70-6.10); White Blood Cell (WBC) Count 0.9 10x3/uL (4.8-10.8)
[2022-11-24 06:25] LABS: Anion Gap 7 mmol/L (10-20); BUN (Urea Nitrogen) 31 mg/dL (8.4-25.7); Calc. Creatinine Clearance 93 mL/min (70-130); Calcium 7.6 mg/dL (7.8-10.44); Carbon Dioxide 21 mmol/L (23-31); Chloride 113 mmol/L (98-107); Estimated GFR 91; Glucose 89 mg/dL (83-110); Potassium 4.4 mmol/L (3.5-5.1); Sodium 137 mmol/L (136-145)
[2022-11-24 06:47] LABS: Band 4 % (5-11); Hypochromia SLIGHT = 6-15 cells (100X) (0-5/hpf); Lymphocytes 36 % (21-51); MDiff Complete? YES; Macrocytosis SLIGHT = 6-15 cells (100X) (0-5/hpf); Neutrophil 56 % (42-75); Platelet Morphology Comment Appears Adequate; Reactive Lymphocytes 4 % (0-10)
[2022-11-24] MEDS: predniSONE 20 MG TAB PO SCH (08:51)
[2022-11-24] MEDS: Carvedilol 25 MG TAB PO SCH ×2 (08:52→16:25)
[2022-11-24] MEDS: Famotidine 20 MG TAB PO SCH ×2 (08:52→21:44)
[2022-11-24] MEDS: Methotrexate Sodium 2.5 MG TAB PO SCH (08:52)
[2022-11-24] MEDS: Polyethylene Glycol 3350 17 GM Packet PO SCH (09:07)
[2022-11-24] MEDS: Senokot S 8.6-50 MG TAB PO SCH ×2 (09:07→21:44)
[2022-11-24 20:30] LABS: Vancomycin, Trough 21.5 ug/mL
[2022-11-24] MEDS: VANCOMYCIN 1.25 GM/250 ML BAG 1.25 GM in Premix Bag 1 BAG IVPB SCH (21:44)
[2022-11-25] MEDS: Cefepime 2 GM in Sodium Chloride 0.9% 100 ML IVPB SCH ×4 (00:12→23:30)
[2022-11-25] MEDS: metroNIDAZOLE 500 MG in Premix Bag 1 BAG IVPB SCH ×3 (01:59→18:37)
[2022-11-25] MEDS: Vancomycin 1.5 GRAM/300 ML BAG 1.5 GM in Premix Bag 1 BAG IVPB SCH (05:22)
[2022-11-25 06:38] LABS: Hemoglobin 7.5 g/dL (14.0-18.0); Mean Corpuscular HGB CONC 32.5 g/dL (32.0-36.0); Mean Corpuscular Hemoglobin 34.3 pg (27.0-31.0); RBC Distribution Width 18.7 % (11.5-14.5); Red Blood Cell (RBC) Count 2.19 mill/uL (4.70-6.10); White Blood Cell (WBC) Count 0.7 10x3/uL (4.8-10.8)
[2022-11-25 06:54] LABS: Anion Gap 6 mmol/L (10-20); BUN (Urea Nitrogen) 22 mg/dL (8.4-25.7); Calc. Creatinine Clearance 93 mL/min (70-130); Calcium 7.4 mg/dL (7.8-10.44); Carbon Dioxide 20 mmol/L (23-31); Chloride 113 mmol/L (98-107); Estimated GFR 91; Glucose 88 mg/dL (83-110); Potassium 4.2 mmol/L (3.5-5.1); Sodium 135 mmol/L (136-145)
[2022-11-25 06:56] LABS: Mean Platelet Volume 7.7 fL (7.4-10.4); Platelet Count 88 10x3/uL (130-400)
[2022-11-25 06:57] LABS: Band 4 % (5-11); Hypochromia SLIGHT = 6-15 cells (100X) (0-5/hpf); Lymphocytes 76 % (21-51); MDiff Complete? YES; Macrocytosis SLIGHT = 6-15 cells (100X) (0-5/hpf); Neutrophil 8 % (42-75); Platelet Morphology Comment Appears Decreased; Reactive Lymphocytes 12 % (0-10)
[2022-11-25] MEDS: Carvedilol 25 MG TAB PO SCH ×2 (09:26→18:37)
[2022-11-25] MEDS: Famotidine 20 MG TAB PO SCH ×2 (09:26→21:08)
[2022-11-25] MEDS: predniSONE 20 MG TAB PO SCH (09:28)
[2022-11-25] MEDS ORDERED: Fentanyl 100 MCG/2 ML VIAL ONE (09:44)
[2022-11-25] MEDS ORDERED: Sodium Bicarbonate 2.5 MEQ/5 ML VIAL ONE (09:44)
[2022-11-25] MEDS ORDERED: Midazolam HCl 2 mg/2 ml Vial ONE (09:44)
[2022-11-25] MEDS: Senokot S 8.6-50 MG TAB PO SCH ×2 (12:22→21:06)
[2022-11-25] MEDS: Polyethylene Glycol 3350 17 GM Packet PO SCH (12:22)
[2022-11-25] MEDS: VANCOMYCIN 1.25 GM/250 ML BAG 1.25 GM in Premix Bag 1 BAG IVPB SCH (21:07)
[2022-11-26] MEDS: metroNIDAZOLE 500 MG in Premix Bag 1 BAG IVPB SCH ×3 (02:26→17:30)
[2022-11-26 06:15] LABS: Hemoglobin 6.7 g/dL (14.0-18.0); Mean Corpuscular HGB CONC 33.6 g/dL (32.0-36.0); Mean Corpuscular Hemoglobin 35.6 pg (27.0-31.0); Mean Platelet Volume 8.4 fL (7.4-10.4); Platelet Count 63 10x3/uL (130-400); Red Blood Cell (RBC) Count 1.87 mill/uL (4.70-6.10); White Blood Cell (WBC) Count 0.6 10x3/uL (4.8-10.8)
[2022-11-26 06:18] LABS: Anion Gap 6 mmol/L (10-20); BUN (Urea Nitrogen) 21 mg/dL (8.4-25.7); Calc. Creatinine Clearance 98 mL/min (70-130); Calcium 7.3 mg/dL (7.8-10.44); Carbon Dioxide 21 mmol/L (23-31); Chloride 113 mmol/L (98-107); Estimated GFR 92; Glucose 84 mg/dL (83-110); Potassium 3.8 mmol/L (3.5-5.1); Sodium 136 mmol/L (136-145)
[2022-11-26 06:36] LABS: Hypochromia SLIGHT = 6-15 cells (100X) (0-5/hpf); Lymphocytes 70 % (21-51); MDiff Complete? YES; Macrocytosis SLIGHT = 6-15 cells (100X) (0-5/hpf); Monocytes 20 % (0-10); Neutrophil 10 % (42-75); Platelet Morphology Comment Appears Adequate
[2022-11-26] MEDS: Cefepime 2 GM in Sodium Chloride 0.9% 100 ML IVPB SCH ×2 (08:21→16:26)
[2022-11-26] MEDS: predniSONE 20 MG TAB PO SCH (08:21)
[2022-11-26] MEDS: Famotidine 20 MG TAB PO SCH ×2 (08:21→21:00)
[2022-11-26] MEDS: Carvedilol 25 MG TAB PO SCH ×2 (08:21→16:26)
[2022-11-26] MEDS: Polyethylene Glycol 3350 17 GM Packet PO SCH (08:24)
[2022-11-26] MEDS: Senokot S 8.6-50 MG TAB PO SCH ×2 (08:24→20:59)
[2022-11-26] MEDS: VANCOMYCIN 1.25 GM/250 ML BAG 1.25 GM in Premix Bag 1 BAG IVPB SCH (21:00)
[2022-11-26] MEDS ORDERED: Nystatin 500,000 UNITS/5 ML UDCUP SSW SCH (21:00)
[2022-11-26 21:28] LABS: Vancomycin, Trough 17.3 ug/mL
[2022-11-26] MEDS: Aluminum & Magnesium Hydroxide 60 ML, diphenhydrAMINE 150 MG, Lidocaine 2% Viscous Solu... SSW PRN (21:53)
[2022-11-27] MEDS: Cefepime 2 GM in Sodium Chloride 0.9% 100 ML IVPB SCH ×3 (01:04→15:31)
[2022-11-27] MEDS: metroNIDAZOLE 500 MG in Premix Bag 1 BAG IVPB SCH ×3 (03:26→17:37)
[2022-11-27 06:09] LABS: Hemoglobin 7.3 g/dL (14.0-18.0); Mean Corpuscular HGB CONC 32.8 g/dL (32.0-36.0); Mean Corpuscular Hemoglobin 33.4 pg (27.0-31.0); Mean Platelet Volume 9.6 fL (7.4-10.4); Platelet Count 56 10x3/uL (130-400); RBC Distribution Width 17.9 % (11.5-14.5); Red Blood Cell (RBC) Count 2.17 mill/uL (4.70-6.10); White Blood Cell (WBC) Count 0.7 10x3/uL (4.8-10.8)
[2022-11-27 06:21] LABS: Anion Gap 4 mmol/L (10-20); BUN (Urea Nitrogen) 21 mg/dL (8.4-25.7); Calc. Creatinine Clearance 100 mL/min (70-130); Calcium 7.3 mg/dL (7.8-10.44); Carbon Dioxide 21 mmol/L (23-31); Chloride 113 mmol/L (98-107); Estimated GFR 93; Glucose 90 mg/dL (83-110); Potassium 3.7 mmol/L (3.5-5.1); Sodium 134 mmol/L (136-145)
[2022-11-27 07:00] LABS: Anisocytosis SLIGHT = 6-15 cells (100X) (0-5/hpf); Eosinophils 28 % (0-10); Lymphocytes 64 % (21-51); MDiff Complete? YES; Neutrophil 8 % (42-75); Ovalocytes SLIGHT = 2-5 cells (100X) (0-1/hpf); Platelet Morphology Comment Appears Decreased; Schistocytes SLIGHT = 2-5 cells (100X) (0-1/hpf)
[2022-11-27] MEDS: Senokot S 8.6-50 MG TAB PO SCH ×2 (08:03→21:28)
[2022-11-27] MEDS: Famotidine 20 MG TAB PO SCH ×2 (08:04→21:28)
[2022-11-27] MEDS: Carvedilol 25 MG TAB PO SCH ×2 (08:04→17:37)
[2022-11-27] MEDS: predniSONE 20 MG TAB PO SCH (08:04)
[2022-11-27] MEDS: Polyethylene Glycol 3350 17 GM Packet PO SCH (08:16)
[2022-11-27] MEDS: Aluminum & Magnesium Hydroxide 60 ML, diphenhydrAMINE 150 MG, Lidocaine 2% Viscous Solu... SSW PRN ×2 (09:37→19:04)
[2022-11-27] MEDS ORDERED: Lidocaine Viscous Sol 2% 15 ml UD Cup SSP PRN (17:58)
[2022-11-27] MEDS: VANCOMYCIN 1.25 GM/250 ML BAG 1.25 GM in Premix Bag 1 BAG IVPB SCH (21:28)
[2022-11-28] MEDS: Cefepime 2 GM in Sodium Chloride 0.9% 100 ML IVPB SCH ×3 (00:02→17:07)
[2022-11-28] MEDS: metroNIDAZOLE 500 MG in Premix Bag 1 BAG IVPB SCH ×3 (02:48→18:32)
[2022-11-28] MEDS: Sodium Chloride 0.9% 1,000 ML IV SCH ×2 (02:50→15:13)
[2022-11-28] MEDS: Carvedilol 25 MG TAB PO SCH ×2 (08:35→17:07)
[2022-11-28] MEDS: predniSONE 20 MG TAB PO SCH (08:36)
[2022-11-28] MEDS: Famotidine 20 MG TAB PO SCH ×2 (08:36→21:41)
[2022-11-28 09:49] LABS: Hemoglobin 8.6 g/dL (14.0-18.0); Mean Corpuscular HGB CONC 32.6 g/dL (32.0-36.0); Mean Corpuscular Hemoglobin 34.4 pg (27.0-31.0); Mean Platelet Volume 10.7 fL (7.4-10.4); Platelet Count 47 10x3/uL (130-400); RBC Distribution Width 17.9 % (11.5-14.5); Red Blood Cell (RBC) Count 2.49 mill/uL (4.70-6.10); White Blood Cell (WBC) Count 0.8 10x3/uL (4.8-10.8)
[2022-11-28 09:51] LABS: Albumin 2.1 g/dL (3.4-4.8); Anion Gap 9 mmol/L (10-20); BUN (Urea Nitrogen) 19 mg/dL (8.4-25.7); BUN/Creatinine Ratio 23.46; Calc. Creatinine Clearance 93 mL/min (70-130); Calcium 7.5 mg/dL (7.8-10.44); Carbon Dioxide 17 mmol/L (23-31); Chloride 113 mmol/L (98-107); Estimated GFR 91; Glucose 107 mg/dL (83-110); Phosphorus 1.8 mg/dL (2.3-4.7); Sodium 135 mmol/L (136-145)
[2022-11-28] MEDS: Senokot S 8.6-50 MG TAB PO SCH ×2 (10:00→21:32)
[2022-11-28] MEDS: Polyethylene Glycol 3350 17 GM Packet PO SCH (10:00)
[2022-11-28 10:33] LABS: MDiff Complete? YES
[2022-11-28 10:34] LABS: Band 18 % (5-11); Burr Cells SLIGHT = 2-5 cells (100X) (0-1/hpf); Eosinophils 12 % (0-10); Lymphocytes 42 % (21-51); Macrocytosis SLIGHT = 6-15 cells (100X) (0-5/hpf); Monocytes 14 % (0-10); Neutrophil 14 % (42-75); Nucleated RBC 1 % (0); Ovalocytes SLIGHT = 2-5 cells (100X) (0-1/hpf); Platelet Morphology Comment Appears Decreased; Polychromasia SLIGHT = 2-3 cells (100X) (0-2/hpf); Tear Drops SLIGHT = 2-5 cells (100X) (0-1/hpf)
[2022-11-28] MEDS: Aluminum & Magnesium Hydroxide 60 ML, diphenhydrAMINE 150 MG, Lidocaine 2% Viscous Solu... SSW PRN (15:12)
[2022-11-28] MEDS ORDERED: Sodium Phosphate 15 MMOL in Sodium Chloride 0.9% 250 ML 250 ML IVPB SCH (19:45)
[2022-11-28] MEDS: VANCOMYCIN 1.25 GM/250 ML BAG 1.25 GM in Premix Bag 1 BAG IVPB SCH (21:40)
[2022-11-28] MEDS: Aluminum & Magnesium Hydroxide 60 ML, diphenhydrAMINE 150 MG, Lidocaine 2% Viscous Solu... SSW SCH (22:13)
[2022-11-28 23:23] LABS: Vancomycin, Trough 33.5 ug/mL
[2022-11-29] MEDS: Cefepime 2 GM in Sodium Chloride 0.9% 100 ML IVPB SCH ×5 (00:41→23:35)
[2022-11-29] MEDS: metroNIDAZOLE 500 MG in Premix Bag 1 BAG IVPB SCH ×3 (02:24→22:54)
[2022-11-29 05:56] LABS: Hemoglobin 7.7 g/dL (14.0-18.0); Mean Corpuscular HGB CONC 34.2 g/dL (32.0-36.0); Mean Corpuscular Hemoglobin 34.6 pg (27.0-31.0); Mean Platelet Volume 10.4 fL (7.4-10.4); Platelet Count 52 10x3/uL (130-400); RBC Distribution Width 17.7 % (11.5-14.5); Red Blood Cell (RBC) Count 2.21 mill/uL (4.70-6.10); White Blood Cell (WBC) Count 1.5 10x3/uL (4.8-10.8)
[2022-11-29 06:13] LABS: Albumin 1.9 g/dL (3.4-4.8); Anion Gap 8 mmol/L (10-20); BUN (Urea Nitrogen) 20 mg/dL (8.4-25.7); Calc. Creatinine Clearance 95 mL/min (70-130); Calcium 7.6 mg/dL (7.8-10.44); Carbon Dioxide 20 mmol/L (23-31); Chloride 114 mmol/L (98-107); Estimated GFR 91; Glucose 88 mg/dL (83-110); Potassium 3.6 mmol/L (3.5-5.1); Sodium 138 mmol/L (136-145)
[2022-11-29 08:11] LABS: Anisocytosis SLIGHT = 6-15 cells (100X) (0-5/hpf); Band 38 % (5-11); Eosinophils 7 % (0-10); Helmet Cells SLIGHT = 2-5 cells (100X) (0-1/hpf); Lymphocytes 25 % (21-51); MDiff Complete? YES; Macrocytosis SLIGHT = 6-15 cells (100X) (0-5/hpf); Metamyelocyte 1 % (0-0); Monocytes 20 % (0-10); Myelocyte 1 % (0-0); Neutrophil 3 % (42-75); Ovalocytes SLIGHT = 2-5 cells (100X) (0-1/hpf); Platelet Morphology Comment Appears Adequate; Polychromasia SLIGHT = 2-3 cells (100X) (0-2/hpf); Reactive Lymphocytes 5 % (0-10); Schistocytes SLIGHT = 2-5 cells (100X) (0-1/hpf)
[2022-11-29] MEDS: Aluminum & Magnesium Hydroxide 60 ML, diphenhydrAMINE 150 MG, Lidocaine 2% Viscous Solu... SSW SCH ×3 (09:18→23:19)
[2022-11-29] MEDS: Famotidine 20 MG TAB PO SCH ×2 (09:23→23:00)
[2022-11-29] MEDS: Carvedilol 25 MG TAB PO SCH ×2 (09:24→16:40)
[2022-11-29] MEDS: predniSONE 20 MG TAB PO SCH (09:26)
[2022-11-29] MEDS: Polyethylene Glycol 3350 17 GM Packet PO SCH (11:09)
[2022-11-29] MEDS: Senokot S 8.6-50 MG TAB PO SCH ×2 (11:10→22:59)
[2022-11-29] MEDS ORDERED: Sodium Bicarbonate 150 MEQ in Dextrose 5% in Water 1,000 ML IV SCH (12:00)
[2022-11-29] MEDS ORDERED: Potassium Phosphate 9 MMOL in Sodium Chloride 0.9% 100 ML IVPB SCH (18:30)
[2022-11-30] MEDS: VANCOMYCIN 1.25 GM/250 ML BAG 1.25 GM in Premix Bag 1 BAG IVPB SCH (00:55)
[2022-11-30] MEDS: metroNIDAZOLE 500 MG in Premix Bag 1 BAG IVPB SCH ×3 (03:55→21:27)
[2022-11-30] MEDS: Aluminum & Magnesium Hydroxide 60 ML, diphenhydrAMINE 150 MG, Lidocaine 2% Viscous Solu... SSW SCH ×3 (06:27→23:16)
[2022-11-30] MEDS: Polyethylene Glycol 3350 17 GM Packet PO SCH (09:47)
[2022-11-30] MEDS: Senokot S 8.6-50 MG TAB PO SCH ×2 (09:47→21:27)
[2022-11-30] MEDS: Cefepime 2 GM in Sodium Chloride 0.9% 100 ML IVPB SCH ×2 (09:47→15:02)
[2022-11-30] MEDS: predniSONE 20 MG TAB PO SCH (09:48)
[2022-11-30] MEDS: Famotidine 20 MG TAB PO SCH ×2 (09:48→21:26)
[2022-11-30] MEDS: Carvedilol 25 MG TAB PO SCH ×2 (09:48→17:48)
[2022-11-30 10:47] LABS: Hemoglobin 8.3 g/dL (14.0-18.0); Mean Corpuscular HGB CONC 33.6 g/dL (32.0-36.0); Mean Corpuscular Hemoglobin 33.7 pg (27.0-31.0); Platelet Count 62 10x3/uL (130-400); RBC Distribution Width 17.8 % (11.5-14.5); Red Blood Cell (RBC) Count 2.46 mill/uL (4.70-6.10); White Blood Cell (WBC) Count 6.3 10x3/uL (4.8-10.8)
[2022-11-30 11:22] LABS: Band 40 % (5-11); Eosinophils 2 % (0-10); Lymphocytes 11 % (21-51); MDiff Complete? YES; Monocytes 9 % (0-10); Neutrophil 38 % (42-75); Platelet Morphology Comment Appears Decreased; Polychromasia SLIGHT = 2-3 cells (100X) (0-2/hpf)
[2022-11-30] MEDS: Insulin Regular 300 UNITS/3 ML VIAL SC PRN (15:26)
[2022-12-01] MEDS: Cefepime 2 GM in Sodium Chloride 0.9% 100 ML IVPB SCH ×2 (00:19→08:32)
[2022-12-01] MEDS ORDERED: VANCOMYCIN 1.25 GM/250 ML BAG 1.25 GM in Premix Bag 1 BAG IVPB SCH (01:00)
[2022-12-01] MEDS: metroNIDAZOLE 500 MG in Premix Bag 1 BAG IVPB SCH ×3 (04:39→20:29)
[2022-12-01] MEDS: Aluminum & Magnesium Hydroxide 60 ML, diphenhydrAMINE 150 MG, Lidocaine 2% Viscous Solu... SSW SCH ×2 (04:42→14:28)
[2022-12-01] MEDS: Carvedilol 25 MG TAB PO SCH ×2 (08:31→17:18)
[2022-12-01] MEDS: Senokot S 8.6-50 MG TAB PO SCH ×2 (08:31→20:30)
[2022-12-01] MEDS: Famotidine 20 MG TAB PO SCH ×2 (08:31→20:30)
[2022-12-01] MEDS: predniSONE 20 MG TAB PO SCH (08:32)
[2022-12-01] MEDS: Polyethylene Glycol 3350 17 GM Packet PO SCH (08:32)
[2022-12-01] MEDS: Methotrexate Sodium 2.5 MG TAB PO SCH (08:34)
[2022-12-01] MEDS: Insulin Regular 300 UNITS/3 ML VIAL SC PRN (17:17)
[2022-12-02] MEDS: Aluminum & Magnesium Hydroxide 60 ML, diphenhydrAMINE 150 MG, Lidocaine 2% Viscous Solu... SSW SCH ×4 (00:07→21:00)
[2022-12-02] MEDS: metroNIDAZOLE 500 MG in Premix Bag 1 BAG IVPB SCH ×3 (05:42→20:59)
[2022-12-02] MEDS: Polyethylene Glycol 3350 17 GM Packet PO SCH (08:27)
[2022-12-02] MEDS: Carvedilol 25 MG TAB PO SCH ×2 (08:28→16:56)
[2022-12-02] MEDS: Senokot S 8.6-50 MG TAB PO SCH ×2 (08:28→20:59)
[2022-12-02] MEDS: predniSONE 20 MG TAB PO SCH (08:28)
[2022-12-02] MEDS: Famotidine 20 MG TAB PO SCH ×2 (08:28→20:59)
[2022-12-02 15:43] LABS: Analyzer IN Cardio OR; Base Excess (BEa) -6.9 mEq/L (-2.0 to +3.0); CO2 Tension 39.6 mmHg (35.0-45.0); Calcium, Ionized (arterial) 1.12 mmol/L (1.12-1.30); Carboxyhemoglobin (COHb) 1.8 gm% (0.0-3.0); Potassium - ABG Lab 4.15 mmol/L (3.70-5.30)
[2022-12-02 15:44] LABS: Actual Bicarbonate (HCO3a) 18.7 mEq/L (22-28); Analyzer IN Cardio OR; Base Excess (BEa) -5.4 mEq/L (-2.0 to +3.0); CO2 Tension 31.4 mmHg (35.0-45.0); Calcium, Ionized (arterial) 1.12 mmol/L (1.12-1.30); Carboxyhemoglobin (COHb) 1.5 gm% (0.0-3.0); O2 Tension (PaO2), arterial 470.9 mmHg (> 70.0); Potassium - ABG Lab 4.61 mmol/L (3.70-5.30); Puncture Site Arterial Line; pH, Arterial 7.39 (7.35-7.45)
[2022-12-02 15:44] LABS: Puncture Site Arterial Line
[2022-12-02] MEDS ORDERED: Benzonatate 100 MG CAP PO PRN (21:02)
[2022-12-02] MEDS: Albuterol 200 PUFF (6.7GM INHALER) INH PRN (21:36)
[2022-12-03] MEDS: Aluminum & Magnesium Hydroxide 60 ML, diphenhydrAMINE 150 MG, Lidocaine 2% Viscous Solu... SSW SCH ×2 (05:02→13:22)
[2022-12-03] MEDS: Guaifenesin DM 100-10/5 ML UDCUP PO PRN (05:02)
[2022-12-03] MEDS: Albuterol 200 PUFF (6.7GM INHALER) INH PRN (05:03)
[2022-12-03] MEDS: metroNIDAZOLE 500 MG in Premix Bag 1 BAG IVPB SCH ×2 (05:03→13:22)
[2022-12-03] MEDS: HYDROcodone/Acetaminophen 5/325 mg Tablet PO PRN (05:14)
[2022-12-03] MEDS ORDERED: Spironolactone 25 MG TAB PO SCH (08:00)
[2022-12-03] MEDS: Carvedilol 25 MG TAB PO SCH ×2 (08:15→17:53)
[2022-12-03] MEDS: Famotidine 20 MG TAB PO SCH (08:15)
[2022-12-03] MEDS: predniSONE 20 MG TAB PO SCH (08:15)
[2022-12-03] MEDS: Senokot S 8.6-50 MG TAB PO SCH (08:35)
[2022-12-03] MEDS: Polyethylene Glycol 3350 17 GM Packet PO SCH (08:35)
[2022-12-03 08:39] LABS: Mean Corpuscular Hemoglobin 32.9 pg (27.0-31.0); Mean Platelet Volume 8.1 fL (7.4-10.4); Platelet Count 227 10x3/uL (130-400); RBC Distribution Width 18.4 % (11.5-14.5); Red Blood Cell (RBC) Count 2.13 mill/uL (4.70-6.10); White Blood Cell (WBC) Count 4.6 10x3/uL (4.8-10.8)
[2022-12-03 08:47] LABS: Anion Gap 9 mmol/L (10-20); BUN (Urea Nitrogen) 21 mg/dL (8.4-25.7); Calc. Creatinine Clearance 64 mL/min (70-130); Calcium 7.2 mg/dL (7.8-10.44); Carbon Dioxide 19 mmol/L (23-31); Chloride 111 mmol/L (98-107); Estimated GFR 64; Glucose 105 mg/dL (83-110); Potassium 3.3 mmol/L (3.5-5.1); Sodium 136 mmol/L (136-145)
[2022-12-03] MEDS ORDERED: Torsemide 20 MG TAB PO SCH (09:00)
[2022-12-03 11:24] LABS: Anisocytosis MODERATE=16-30 cells (100X) (0-5/hpf); Band 16 % (5-11); Eosinophils 1 % (0-10); Lymphocytes 11 % (21-51); MDiff Complete? YES; Metamyelocyte 1 % (0-0); Monocytes 2 % (0-10); Myelocyte 1 % (0-0); Neutrophil 68 % (42-75); Ovalocytes SLIGHT = 2-5 cells (100X) (0-1/hpf); Polychromasia SLIGHT = 2-3 cells (100X) (0-2/hpf)
[2022-12-03] MEDS ORDERED: Potassium Chloride 20 MEQ TAB PO SCH (13:45)
[2022-12-03] MEDS ORDERED: Dexamethasone 4 MG TAB PO SCH (16:00)
[2022-12-03 16:20] VITALS: BP 145/68; TEMP 98
[2022-12-04] MEDS ORDERED: Dexamethasone 4 MG TAB PO SCH ×3 (08:00→16:00)
== END 2022-12-03 18:58 | disposition home or self-care (01) | DRG 853 ==
LOC: ERS 18:44 → 2SW 22:16 → CCU 11-20 11:55 → SURG A 11-23 20:56
PROVIDERS: ADMIT Student in an Organized Health Care Education/Training Program; ATTEND Hospitalist
PROC: 3E03329 Introduction of Other Anti-infective into Peripheral Vein, Percutaneous Approach (ICD-10-PCS; 2022-11-17)
PROC: 30233K1 Transfusion of Nonautologous Frozen Plasma into Peripheral Vein, Percutaneous Approach (ICD-10-PCS; 2022-11-18)
PROC: 0W9930Z Drainage of Right Pleural Cavity with Drainage Device, Percutaneous Approach (ICD-10-PCS; 2022-11-18)
PROC: 0BNC0ZZ Release Right Upper Lung Lobe, Open Approach (ICD-10-PCS; principal; 2022-11-20)
PROC: 0BNF0ZZ Release Right Lower Lung Lobe, Open Approach (ICD-10-PCS; 2022-11-20)
PROC: 0BND0ZZ Release Right Middle Lung Lobe, Open Approach (ICD-10-PCS; 2022-11-20)
PROC: 0B9K4ZZ Drainage of Right Lung, Percutaneous Endoscopic Approach (ICD-10-PCS; 2022-11-20)
PROC: 30233N1 Transfusion of Nonautologous Red Blood Cells into Peripheral Vein, Percutaneous Approach (ICD-10-PCS; 2022-11-20)
PROC: 079T3ZX Drainage of Bone Marrow, Percutaneous Approach, Diagnostic (ICD-10-PCS; 2022-11-25)
PROC: 07DR3ZX Extraction of Iliac Bone Marrow, Percutaneous Approach, Diagnostic (ICD-10-PCS; 2022-11-25)
DX: A41.9 Sepsis, unspecified organism (principal); D61.810 Antineoplastic chemotherapy induced pancytopenia; J86.9 Pyothorax without fistula; U07.1 COVID-19; J12.82 Pneumonia due to coronavirus disease 2019; J96.21 Acute and chronic respiratory failure with hypoxia; C91.10 Chronic lymphocytic leukemia of B-cell type not having achieved remission; J90 Pleural effusion, not elsewhere classified; I50.32 Chronic diastolic (congestive) heart failure; N17.9 Acute kidney failure, unspecified; I13.0 Hypertensive heart and chronic kidney disease with heart failure and stage 1 through stage 4 chronic kidney disease, or unspecified chronic kidney disease; C91.Z0 Other lymphoid leukemia not having achieved remission; I47.20 Ventricular tachycardia, unspecified; E87.1 Hypo-osmolality and hyponatremia; G72.81 Critical illness myopathy; R65.20 Severe sepsis without septic shock; E11.22 Type 2 diabetes mellitus with diabetic chronic kidney disease; I44.30 Unspecified atrioventricular block; D63.1 Anemia in chronic kidney disease; D53.9 Nutritional anemia, unspecified; T45.1X5A Adverse effect of antineoplastic and immunosuppressive drugs, initial encounter; K12.1 Other forms of stomatitis; H40.9 Unspecified glaucoma; Z79.84 Long term (current) use of oral hypoglycemic drugs; Z79.899 Other long term (current) drug therapy; Z98.890 Other specified postprocedural states; Z99.81 Dependence on supplemental oxygen
CPT/HCPCS: 36415; 36416; 36430; 38222; 71045; 71250; 77002; 80048; 80053; 80069; 80202; 81001; 82150; 82550; 82553; 82570; 82728; 82805; 82945; 83036; 83540; 83550; 83605; 83615; 83735; 83880; 83986; 84145; 84157; 84300; 84478; 84484; 85014; 85018; 85025; 85049; 85060; 85097; 85379; 85384; 85610; 85730; 86140; 86850; 86900; 86901; 87040; 87070; 87116; 87205; 87206; 87811; 88112; 88184; 88237; 88305; 88311; 88313; 88341; 88342; 88365; 89051; 93005; 93010; 94760; 96365; 96366; C1751; J0692; J0696; J1100; J1447; J1642; J1644; J1815; J2001; J2250; J2405; J2543; J2704; J3010; J3370; J3370-JW; J3490; J7050; J7070; J7120; J7512; J8540; J8610; P9016; P9059; Q0163; U0003; U0005